=== PATIENT | male | born 1950 | race Caucasian/White ===

== ENCOUNTER 2020-05-12 08:08 | Emergency (ER) | payer MEDICARE, BC ==
[~2020-05-12] VITALS: Ht 177.8 cm; Wt 136.4 kg
[~2020-05-12 08:08] MED LIST: ACCUPRIL10 M1 PO; ALBUTEROL0.83 MG/ML IH; ATIVAN 0.50.5 MG/TAB PO; ATROVENT I0.2 MG/1 M IH; BENADRYL25 M2 PO; BISACODYL10 MG RC; CEPHALEXIN500 M1 PO; COLACE 100100 MG/CAP PO; DOXYCYCLINE 10100 MG PO; FENTANYL 50MCG TOP; GLUCOPHAGE500 MG/TAB PO; GLUCOTROL 5M5 MG/TAB PO; HCTZ 25MG TAB25 MG PO; LEXAPRO 10MG10 MG PO; LOVENOX 4040 MG/0.4 SQ; MILK OF MA400 MG/52 PO; MIRALAX PA17 GM/Dose PO; MYLANTA 150 ML150 M1 PO; NAPROSYN 2250 MG/TAB PO; NAPROSYN500 MG PO; NORCO 325 MG-51 TAB PO; NOVOLOG 100U100 U/M1 SC; NYSTATIN1 POW; PROTONIX 40MG T40 MG PO; ROCEPHIN VIA1 G/VIAL IJ; ROXICODONE 55 MG/TAB PO; SENNA8.6 MG PO; THERA TABS1 TA1 PO; TYLENOL 325MG325 MG PO; VALIUM 5MG T5 MG/TAB PO; ZANAFLEX 4MG TAB4 MG PO
[2020-05-12 08:14] VITALS: TEMP 97.8
[2020-05-12 09:41] LABS: BASO % 0.5 % (0.0-2.0); EOS # 0.2 (0.0-0.7); EOS % 2.7 % (0-4.0); GRAN # 7.1 (1.4-6.5); GRAN % 80.3 % (42.2-75.2); HEMOGLOBIN 11.7 g/dl (13.5-18.0); LYMPH # 0.7 (1.2-3.4); LYMPH % 8.4 % (20.0-51.0); MEAN CELL VOLUME 112 fl (80.0-100.0); MEAN CORPUSCULAR HEMOGLOBIN 36 pg (27.0-31.0); MEAN CORPUSCULAR HGB CONC 32 g/dl (33.0-37.0); MEAN PLATELET VOLUME 8.8 fl (7.4-10.4); MONO # 0.7 (0.1-0.6); MONO % 7.8 % (1.7-9.3); PLATELET COUNT 214 K/mm3 (130-400); RED BLOOD COUNT 3.22 M/mm3 (4.20-5.60); REDCELL DISTRIBUTION WIDTH-CV 15.2 % (11.5-14.5)
[2020-05-12 09:46] LABS: HEMATOCRIT 36.1 % (42.0-52.0)
[2020-05-12 09:51] LABS: ALANINE AMINOTRANSFERASE 10 U/L (4-49); ALBUMIN 2.2 gm/dL (3.5-5.0); ALKALINE PHOSPHATASE 133 U/L (50-136); ANION GAP 2 mmol/L (7-16); AST,SGOT 29 U/L (15-37); BILIRUBIN,TOTAL 0.6 mg/dL (0.0-1.0); BLOOD UREA NITROGEN 11 mg/dL (9-20); C-REACTIVE PROTEIN 8.9 mg/dL (0.0-0.9); CALCIUM 7.5 mg/dL (8.4-10.2); CARBON DIOXIDE 34 mmol/L (22-30); CHLORIDE 102 mmol/L (98-107); CREATININE, serum 1.23 (0.66-1.25); GLUCOSE 85 mg/dL (74-106); MAGNESIUM 1.8 mg/dL (1.6-2.3); PHOSPHOROUS 2.9 mg/dL (2.5-4.5); POTASSIUM 3.2 mmol/L (3.4-5.0); SODIUM 138 mmol/L (137-145); TOTAL PROTEIN 5.9 gm/dL (6.4-8.2)
[2020-05-12 10:02] LABS: TROPONIN-I < 0.012 ng/mL (0.000-0.035)
[2020-05-12 10:58] LABS: COLLECTION METHOD CATHETER
[2020-05-12 11:09] LABS: PH 5 (5-8); SQUAMOUS EPITHELIAL None Seen /hpf; URINE APPEARANCE Turbid; URINE BACTERIA None Seen /hpf; URINE BILIRUBIN Negative (NEGATIVE); URINE BLOOD 3+ (NEGATIVE); URINE COLOR Yellow; URINE GLUCOSE Negative (NEGATIVE); URINE KETONE Negative (NEGATIVE); URINE LEUKOCYTE ESTERASE 1+ (NEGATIVE); URINE NITRATE Positive (NEGATIVE); URINE PROTEIN(semi-quant) 2+ (NEGATIVE); URINE RBC >50 /hpf; URINE UROBILINOGEN Negative (NEGATIVE)
[2020-05-12] MEDS ORDERED: K-TAB20 PO (11:35)
[2020-05-12] MEDS ORDERED: CIPRO 500MG TA500 MG PO (11:35)
[2020-05-12] MEDS ORDERED: LASIX 20MG TABL20 MG PO (11:35)
[2020-05-12 13:00] VITALS: BP 99/69; PULSE 80
== END 2020-05-12 13:00 | disposition home or self-care (01) ==
LOC: COL.ER 08:08
PROVIDERS: Emergency Medicine
DX: E87.6 Hypokalemia (principal); R60.0 Localized edema; L89.619 Pressure ulcer of right heel, unspecified stage; I50.9 Heart failure, unspecified; N18.9 Chronic kidney disease, unspecified; E11.9 Type 2 diabetes mellitus without complications; F17.210 Nicotine dependence, cigarettes, uncomplicated; Z88.1 Allergy status to other antibiotic agents; Z79.84 Long term (current) use of oral hypoglycemic drugs
CPT/HCPCS: J7030

== ENCOUNTER 2022-06-28 12:12 | Inpatient (IN) | payer MEDICARE, BC ==
[~2022-06-28] VITALS: Ht 177.8 cm; Wt 111.7 kg
[~2022-06-28 12:12] MED LIST changes: +CIPRO 500MG TA500 MG PO; +K-TAB20 PO; +LASIX 20MG TABL20 MG PO
[2022-06-28 13:33] LABS: ALBUMIN 1.5 gm/dL (3.4-4.8); BILIRUBIN,TOTAL 0.4 mg/dL (0.2-1.2); CALCIUM 7.7 mg/dL (8.4-10.2); CREATININE, serum 1.5 mg/dL (0.72-1.25); POTASSIUM 3.9 mmol/L (3.5-4.5); TOTAL PROTEIN 6.9 gm/dL (6.2-8.1)
[2022-06-28 14:17] LABS: BASO # 0.1 K/mm3 (0.0-0.2); BASO % 0.6 % (0.0-2.0); EOS # 0.3 K/mm3 (0.0-0.7); EOS % 3.3 % (0.0-4.0); GRAN # 7.9 K/mm3 (1.4-6.5); GRAN % 76.4 % (42.2-75.2); HEMOGLOBIN 11.4 g/dl (13.5-18.0); LYMPH # 1.2 K/mm3 (1.2-3.4); LYMPH % 12.1 % (20.0-51.0); MEAN CELL VOLUME 106 fl (80.0-100.0); MEAN CORPUSCULAR HEMOGLOBIN 36 pg (27-31); MEAN CORPUSCULAR HGB CONC 34 g/dl (33.0-37.0); MEAN PLATELET VOLUME 8.8 fl (7.4-10.4); MONO # 0.8 K/mm3 (0.1-0.6); MONO % 7.4 % (1.7-9.3); PLATELET COUNT 443 K/mm3 (130-400); RED BLOOD COUNT 3.14 M/mm3 (4.20-5.60); REDCELL DISTRIBUTION WIDTH-CV 15.7 % (11.5-14.5)
[2022-06-28 14:18] LABS: HEMATOCRIT 33.2 % (42.0-52.0)
[2022-06-28 17:50] VITALS: BP 103/63; PULSE 99; TEMP 97.9
[2022-06-28 21:01] VITALS: BP 118/69; PULSE 97; TEMP 98.4
[2022-06-29 00:46] VITALS: BP 112/56; PULSE 89; TEMP 98
[2022-06-29 03:48] VITALS: BP 117/63; PULSE 94; TEMP 98.6
[2022-06-29 07:12] VITALS: BP 109/55; PULSE 88; TEMP 97.8
--- NOTE | 2022-06-29 08:33 | NUR ---
Patient sitting up in bed, A&Ox4. VSS 4L NC O2, no reported SOB. Denies pain and discomfort. Nurse made the patient NPO pending procedure. No further needs expressed. Call light within reach. Bed alarm on
[2022-06-29 09:06] LABS: ALBUMIN 1.2 gm/dL (3.4-4.8); BILIRUBIN,TOTAL 0.4 mg/dL (0.2-1.2); CALCIUM 7.2 mg/dL (8.4-10.2); CREATININE, serum 1.39 mg/dL (0.72-1.25); TOTAL PROTEIN 5.8 gm/dL (6.2-8.1)
[2022-06-29 09:58] LABS: BASO # 0.1 K/mm3 (0.0-0.2); BASO % 0.6 % (0.0-2.0); EOS # 0.3 K/mm3 (0.0-0.7); EOS % 3.3 % (0.0-4.0); GRAN # 7.6 K/mm3 (1.4-6.5); GRAN % 78.4 % (42.2-75.2); HEMATOCRIT 38.7 % (42.0-52.0); HEMOGLOBIN 12.7 g/dl (13.5-18.0); LYMPH # 1.2 K/mm3 (1.2-3.4); MEAN CELL VOLUME 109 fl (80.0-100.0); MEAN CORPUSCULAR HEMOGLOBIN 36 pg (27-31); MEAN CORPUSCULAR HGB CONC 33 g/dl (33.0-37.0); MEAN PLATELET VOLUME 9.3 fl (7.4-10.4); MONO # 0.5 K/mm3 (0.1-0.6); MONO % 5.4 % (1.7-9.3); PLATELET COUNT 314 K/mm3 (130-400); RED BLOOD COUNT 3.54 M/mm3 (4.20-5.60); REDCELL DISTRIBUTION WIDTH-CV 15.9 % (11.5-14.5)
[2022-06-29 11:40] VITALS: BP 106/62; PULSE 94; TEMP 98.8
--- NOTE | 2022-06-29 12:20 | NUR ---
SW met with patient to complete intake. Patient states that he lives alone in [facility] Next of kin and point of contact is his daughter Kathy Hopkins [phone]. Patient states that he utilizes a walker, is independent with ADL's, and does not utilize home health services at this time. PCP is Dr. Vargas, and pharmacy is [facility]. DPOA/HC is rodrigo Chavez. Patient states that he plans to return to his home upon DC. SW will continue to follow. DC plan: home
--- NOTE | 2022-06-29 13:07 | NUR ---
Rail Track Layer rounds: Patient declined Rail Track Layer visit; however, requested assistance with getting his lunch. He was not sure if he could have lunch or not. Rail Track Layer spoke with nurse at nurses' station. Patient can have lunch. Patient thought he signed up for "auto service" for his meals, but he had not. Rail Track Layer encouraged him and his visitor (?) to call for his meals because then he could tell the kitchen staff what he wanted to eat as opposed to having something delivered blindly. Patient stated that was a good idea. Patient's visitor was ordering Patient's lunch when Rail Track Layer left the room.
[2022-06-29 15:44] VITALS: BP 101/55; PULSE 91; TEMP 97.8
--- NOTE | 2022-06-29 17:58 | NUR ---
Patient had an uneventful day, had 2 incontinent episodes. A&Ox4. VSS 3L NC O2, no reported SOB. IV CDI, fluids infusing. Denies pain and discomfort. External catheter intact. No further needs expressed. Call light within reach
[2022-06-29 19:49] VITALS: BP 97/52; PULSE 89; TEMP 98.7
[2022-06-30] VITALS (7 sets, daily range): BP systolic 100–123; BP diastolic 50–60; PULSE 68–98; TEMP 98.1–99.1
--- NOTE | 2022-06-30 08:00 | NUR ---
Pt awake and laying in bed. Morning medications administered per eMAR. Shift assessment completed. VSS. Crackles on bases heard during lung auscultation; O2 sat at 93% on 1L per NC. Telemetry on. IV in R forearm intact; no edema or redness. No further requests at this time. Fall precautions remain in place. Call light within reach.
--- NOTE | 2022-06-30 12:34 | NUR ---
Initial visit; Patient thanked Heel Stiffener for stopping by and offering God's blessings. His daughter Kathy was also present and said "Hi" to Heel Stiffener.
--- NOTE | 2022-06-30 14:22 | NUR ---
Heart Coordinator followed up with patient and patient's daughter, Kathy to discuss discharge planning. SW reviewed PT recommendation for post acute rehab vs home health. Patient's preference is home with and Kathy is supportive of this. Patient has used [facility] in the past and would like to use them again. SW faxed referral to [facility] . Discharge Plan: Home with
[2022-06-30 15:00] LABS: BASO # 0.1 K/mm3 (0.0-0.2); BASO % 0.9 % (0.0-2.0); EOS # 0.5 K/mm3 (0.0-0.7); EOS % 4.2 % (0.0-4.0); GRAN # 8.5 K/mm3 (1.4-6.5); LYMPH # 1.2 K/mm3 (1.2-3.4); LYMPH % 10.5 % (20.0-51.0); MEAN CELL VOLUME 109 fl (80.0-100.0); MEAN CORPUSCULAR HGB CONC 33 g/dl (33.0-37.0); MEAN PLATELET VOLUME 8.5 fl (7.4-10.4); MONO # 0.8 K/mm3 (0.1-0.6); MONO % 6.8 % (1.7-9.3); PLATELET COUNT 330 K/mm3 (130-400); RED BLOOD COUNT 2.64 M/mm3 (4.20-5.60); REDCELL DISTRIBUTION WIDTH-CV 15.8 % (11.5-14.5)
[2022-06-30 15:05] LABS: HEMATOCRIT 28.8 % (42.0-52.0); HEMOGLOBIN 9.4 g/dl (13.5-18.0); MEAN CORPUSCULAR HEMOGLOBIN 36 pg (27-31)
[2022-06-30 15:16] LABS: CALCIUM 6.6 mg/dL (8.4-10.2); CREATININE, serum 1.27 mg/dL (0.72-1.25); MAGNESIUM 1.7 mg/dL (1.6-2.6); PHOSPHOROUS 2.9 mg/dL (2.3-4.7); POTASSIUM 3.4 mmol/L (3.5-4.5)
--- NOTE | 2022-06-30 20:43 | NUR ---
PATIENT IS LAYING IN BED WITH LIGHTS OFF AND CALL LIGHT IN HAND. PATIENT DENIES ANY PAIN, NEEDS OR CONCERNS AT THIS TIME. PATIENT ENCOURAGED TO CALL WITH NEEDS OR CONCERNS. RESPIRATORY JUST LEFT ROOM STATING PATIENT WAS SATING 82% AND WAS REFUSING TO HAVE HIS OXYGEN ON. DAY SHIFT RNFEI WENT BACK TO PATIENT ROOM DURING REPORT TO ASSESS.
[2022-07-01 04:37] VITALS: BP 112/51; PULSE 93; TEMP 98.3
[2022-07-01 06:17] LABS: BASO # 0.1 K/mm3 (0.0-0.2); BASO % 0.8 % (0.0-2.0); EOS # 0.5 K/mm3 (0.0-0.7); EOS % 5.3 % (0.0-4.0); GRAN # 6.5 K/mm3 (1.4-6.5); GRAN % 71.5 % (42.2-75.2); HEMOGLOBIN 10.2 g/dl (13.5-18.0); LYMPH # 1.4 K/mm3 (1.2-3.4); LYMPH % 15.2 % (20.0-51.0); MEAN CELL VOLUME 112 fl (80.0-100.0); MEAN CORPUSCULAR HEMOGLOBIN 36 pg (27-31); MEAN CORPUSCULAR HGB CONC 32 g/dl (33.0-37.0); MEAN PLATELET VOLUME 8.8 fl (7.4-10.4); MONO # 0.6 K/mm3 (0.1-0.6); MONO % 6.9 % (1.7-9.3); PLATELET COUNT 356 K/mm3 (130-400); RED BLOOD COUNT 2.87 M/mm3 (4.20-5.60); REDCELL DISTRIBUTION WIDTH-CV 15.4 % (11.5-14.5)
[2022-07-01 06:33] LABS: CALCIUM 7.1 mg/dL (8.4-10.2); CREATININE, serum 1.25 mg/dL (0.72-1.25); MAGNESIUM 1.8 mg/dL (1.6-2.6); POTASSIUM 3.2 mmol/L (3.5-4.5)
[2022-07-01 06:34] LABS: HEMATOCRIT 32.2 % (42.0-52.0)
[2022-07-01 07:30] VITALS: BP 98/58; PULSE 96; TEMP 97.4
--- NOTE | 2022-07-01 08:00 | NUR ---
Pt awake and laying in bed. Morning medications administered; insulin held as pts blood sugar was 64. Physician notified and hypoglycemic reaction protocol in place; dextrose tablet administered. Blood sugar rechecked after 15 minutes and was 57; dextrose tablet administered. Blood sugar rechecked after 15 minutes and was 59; dextrose tablet administered. Blood sugar rechecked after 15 minutes and now stable at 73. Shift assessment completed. Crackles on bases KIMBERLY heard upon auscultation of lungs; O2 sat at 93% on 1L per NC. Telemetry on. Zosyn infusing at 25mL/hr in R FA intact; no edema or redness. Lidocaine patch placed between shoulder blades. Fall precautions remain in place. Call light within reach.
--- NOTE | 2022-07-01 08:14 | NUR ---
Patient's blood glucose noted to be 64 this AM. Upon assessment of patient, no s/s of hypoglycemia noted. VSS. Patient A&O. Hypoglycemia protocol being followed. Call light in reach. Fall precautions in place.
--- NOTE | 2022-07-01 08:22 | NUR ---
Blood glucose 57 upon recheck, second glucose tab administered by ELIS Bahena per protocol.
--- NOTE | 2022-07-01 08:43 | NUR ---
Blood glucose 59 upon recheck. Glucose tablet given per protocol. Patient remains asymptomatic.
--- NOTE | 2022-07-01 09:01 | NUR ---
Blood glucose 73 upon recheck.
[2022-07-01 10:47] VITALS: BP 104/59; PULSE 89; TEMP 97.9
--- NOTE | 2022-07-01 11:15 | NUR ---
Ranch Hand made contact with Tonya at [facility] to confirm they received referral. Tonya requested to be notified when discharge date is set.
[2022-07-01 15:10] VITALS: BP 97/53; PULSE 89; TEMP 97.9
--- NOTE | 2022-07-01 16:34 | NUR ---
Pt blood sugar is 65. ANGELIKA Barnes administered dextrose tablet per hypoglycemic reaction protocol.
--- NOTE | 2022-07-01 18:31 | NUR ---
Blood glucose 70 upon reassessment. Diet advanced to low fiber diet per orders as cystoscopy is complete. Pt had another incontinent episode of large loose stool; Imodium PRN administered. Fall precautions remain in place. Call light within reach.
[2022-07-01 21:02] VITALS: BP 107/56; PULSE 93; TEMP 97.9
[2022-07-02 00:57] VITALS: BP 108/52; PULSE 87; TEMP 98.7
[2022-07-02 05:08] VITALS: BP 103/55; PULSE 87; TEMP 97.7
[2022-07-02 06:51] LABS: BASO # 0.1 K/mm3 (0.0-0.2); BASO % 0.8 % (0.0-2.0); EOS # 0.7 K/mm3 (0.0-0.7); EOS % 6.2 % (0.0-4.0); GRAN # 7.6 K/mm3 (1.4-6.5); GRAN % 71.8 % (42.2-75.2); LYMPH # 1.4 K/mm3 (1.2-3.4); LYMPH % 13.4 % (20.0-51.0); MEAN CORPUSCULAR HGB CONC 33 g/dl (33.0-37.0); MEAN PLATELET VOLUME 8.8 fl (7.4-10.4); MONO # 0.8 K/mm3 (0.1-0.6); MONO % 7.3 % (1.7-9.3); PLATELET COUNT 324 K/mm3 (130-400); RED BLOOD COUNT 2.76 M/mm3 (4.20-5.60); REDCELL DISTRIBUTION WIDTH-CV 15.5 % (11.5-14.5)
[2022-07-02 07:07] LABS: HEMATOCRIT 29.6 % (42.0-52.0); HEMOGLOBIN 9.8 g/dl (13.5-18.0); MEAN CELL VOLUME 107 fl (80.0-100.0); MEAN CORPUSCULAR HEMOGLOBIN 36 pg (27-31)
[2022-07-02 07:10] LABS: ALBUMIN 0.9 gm/dL (3.4-4.8); CALCIUM 6.9 mg/dL (8.4-10.2); CREATININE, serum 1.22 mg/dL (0.72-1.25); MAGNESIUM 1.7 mg/dL (1.6-2.6); PHOSPHOROUS 2.5 mg/dL (2.3-4.7); POTASSIUM 3.5 mmol/L (3.5-4.5)
[2022-07-02 07:13] VITALS: BP 108/49; PULSE 88; TEMP 97.6
--- NOTE | 2022-07-02 08:46 | NUR ---
PATIENT MORNING BLOOD GLUCOSE IS 73. INFORMATION RECEIVED FROM MORNING LAB DRAWS. PATIENT REFUSES FINGERSTICK BLOOD SUGAR CHECKS. PATIENT WILL NOT BE ADMINISTERED INSULIN BASED OFF OF LAB VALUE RESULT. PATIENT IS IN STABLE CONDITION .
--- NOTE | 2022-07-02 09:30 | NUR ---
Radiology notified of need for chest x ray for discharge per order.
[2022-07-02 11:38] VITALS: BP 113/60; PULSE 89; TEMP 98
--- NOTE | 2022-07-02 12:48 | NUR ---
Mechanical Maintenance Worker met with patient and patient's daughter, Kathy to review discharge plan. Patient to discharge home today with [facility]. Kathy advised she is working on establishing Medicaid and [employer] transportation servicse for patient. ILDA presented IM form to patient who verbalized understanding adn provided signature. ILDA placed form in chart and provided copy to patient. ILDA contacted [facility] and faxed discharge orders. Discharge Plan: Home with [facility]
--- NOTE | 2022-07-02 13:50 | NUR ---
PATIENT DISCHARGED VIA WHEELCHAIR WITH OPERATIONS VICE PRESIDENT AT 1350. RECEIVED DISCHARGE INSTRUCTIONS, FOLLOW UP APPOINTMENTSM, AND HOME CARE CONSULTS. ACKNOWLEDGED UNDERSTANDING. NO ISSUES. STABLE.
== END 2022-07-02 13:30 | disposition home health service (06) | DRG 871 ==
LOC: COL.ER 12:12 → MEDICAL 15:49
PROVIDERS: Family Medicine; Internal Medicine; Physician Assistant; Urology; ADMIT Internal Medicine
PROC: 0TJB8ZZ Inspection of Bladder, Via Natural or Artificial Opening Endoscopic (ICD-10-PCS; principal; 2022-07-01 15:30)
DX: A41.9 Sepsis, unspecified organism (principal); J96.01 Acute respiratory failure with hypoxia; A09 Infectious gastroenteritis and colitis, unspecified; K80.10 Calculus of gallbladder with chronic cholecystitis without obstruction; N17.9 Acute kidney failure, unspecified; G47.33 Obstructive sleep apnea (adult) (pediatric); Z66 Do not resuscitate; F32.A Depression, unspecified; F17.210 Nicotine dependence, cigarettes, uncomplicated; F10.90 Alcohol use, unspecified, uncomplicated; I95.9 Hypotension, unspecified; E66.9 Obesity, unspecified; K42.9 Umbilical hernia without obstruction or gangrene; I12.9 Hypertensive chronic kidney disease with stage 1 through stage 4 chronic kidney disease, or unspecified chronic kidney disease; E11.22 Type 2 diabetes mellitus with diabetic chronic kidney disease; N18.30 Chronic kidney disease, stage 3 unspecified; G89.29 Other chronic pain; N32.0 Bladder-neck obstruction; R54 Age-related physical debility; M54.9 Dorsalgia, unspecified; E87.6 Hypokalemia; E11.649 Type 2 diabetes mellitus with hypoglycemia without coma; Z88.1 Allergy status to other antibiotic agents; Z68.35 Body mass index [BMI] 35.0-35.9, adult
CPT/HCPCS: J0696; J1650; J2543; J7030; Q9967

== ENCOUNTER 2022-07-03 14:37 | Observation (INO) | payer MEDICARE, BC ==
[~2022-07-03] VITALS: Ht 170 cm; Wt 111.3 kg
[2022-07-03 15:11] LABS: BASO # 0.1 K/mm3 (0.0-0.2); BASO % 0.7 % (0.0-2.0); EOS # 0.5 K/mm3 (0.0-0.7); EOS % 3.7 % (0.0-4.0); GRAN # 10.9 K/mm3 (1.4-6.5); GRAN % 76.7 % (42.2-75.2); HEMATOCRIT 35.3 % (42.0-52.0); HEMOGLOBIN 11.4 g/dl (13.5-18.0); LYMPH # 1.5 K/mm3 (1.2-3.4); LYMPH % 10.6 % (20.0-51.0); MEAN CELL VOLUME 109 fl (80.0-100.0); MEAN CORPUSCULAR HEMOGLOBIN 35 pg (27-31); MEAN CORPUSCULAR HGB CONC 32 g/dl (33.0-37.0); MEAN PLATELET VOLUME 8.6 fl (7.4-10.4); MONO # 1.1 K/mm3 (0.1-0.6); MONO % 7.8 % (1.7-9.3); PLATELET COUNT 318 K/mm3 (130-400); RED BLOOD COUNT 3.25 M/mm3 (4.20-5.60)
[2022-07-03 15:37] LABS: ALBUMIN 1.1 gm/dL (3.4-4.8); BILIRUBIN,TOTAL 0.6 mg/dL (0.2-1.2); C-REACTIVE PROTEIN 7.03 mg/dL (0.00-0.50); CALCIUM 7.4 mg/dL (8.4-10.2); CREATININE, serum 1.37 mg/dL (0.72-1.25); TOTAL PROTEIN 5.9 gm/dL (6.2-8.1)
--- NOTE | 2022-07-03 16:35 | NUR ---
Patient recently discharged from this facility yesterday. SW consulted for placement. Patient currently medically stable for discharge but is unable to manage at home. SW contacted [facility] [place]. They were able to make it out to the home today and called EMS after finding the patient "tacky, pale, BP 80/50 and heart rate between 130's-150's". Phone call made to the patients daughter Kathy to inform her that the patient was here. She is currently on her way and will arrive around 1715. Per Kathy she is in the process of getting the patient all the needed DME supplies for home including a lift chair but it cannot be delivered until next week. She states that they had to call EMS when the patient got home yesterday to get him into the home because he was "to weak". Kathy is in agreement of the patient being placed for either SNF or LTC.
[2022-07-03 19:22] LABS: COLLECTION METHOD CLEAN CATCH
[2022-07-03 19:25] LABS: URINE APPEARANCE Clear (CLEAR/HAZY); URINE COLOR Yellow (YELLOW)
[2022-07-03 19:26] LABS: URINE GLUCOSE Negative (NEGATIVE); URINE KETONE Negative (NEGATIVE); URINE NITRATE Negative (NEGATIVE); URINE PROTEIN(semi-quant) 1+ (NEGATIVE); URINE UROBILINOGEN 0.2 E.U/dL (0.2-1.0)
[2022-07-03 19:27] LABS: URINE BLOOD 3+ (NEGATIVE)
[2022-07-03 19:32] LABS: MUCOUS Present (NOT PRESENT); SQUAMOUS EPITHELIAL None Seen /hpf (0-10); URINE BACTERIA Rare /hpf (NONE SEEN); URINE CALCIUM OXALATE CRYSTAL Present (NOT PRESENT); URINE RBC >50 /hpf (0-2)
[2022-07-03 19:50] VITALS: BP 107/57; PULSE 84; TEMP 98.3
[2022-07-03 23:33] VITALS: BP 123/70; PULSE 88; TEMP 98
--- NOTE | 2022-07-04 01:32 | NUR ---
PATIENT NOTED TO HAVE TWO LOOSE INCONTINENT BOWEL MOVEMENTS LARGE IN SIZE. OBTAINED ORDER FOR GI PANEL AND RESULTS OF THIS WERE NEGATIVE. PATIENT REPORTS HE HAS ISSUES ON AND OFF WITH LOOSE BOWEL MOVEMENTS. PATIENT NOTED TO HAVE EXORIATED BLEEDING AREAS TO AURELIA AREA. AURELIA CARE PROVIDED AND BARRIER CREAM APPLIED.
[2022-07-04 04:13] VITALS: BP 115/64; PULSE 84; TEMP 98
--- NOTE | 2022-07-04 06:22 | NUR ---
PATIENT RESTED QUIETLY THIS SHIFT. PATIENT HAD 3 LARGE INCONTINENT BOWEL MOVEMENTS. PATIENT RECEIVED NO PRN MEDICATIONS.
[2022-07-04 07:33] VITALS: BP 116/65; PULSE 82; TEMP 97.7
[2022-07-04 09:09] LABS: BASO # 0.1 K/mm3 (0.0-0.2); BASO % 0.7 % (0.0-2.0); EOS # 0.7 K/mm3 (0.0-0.7); EOS % 5.2 % (0.0-4.0); GRAN # 10.3 K/mm3 (1.4-6.5); GRAN % 76.3 % (42.2-75.2); HEMOGLOBIN 11.3 g/dl (13.5-18.0); LYMPH # 1.5 K/mm3 (1.2-3.4); LYMPH % 10.8 % (20.0-51.0); MEAN CELL VOLUME 108 fl (80.0-100.0); MEAN CORPUSCULAR HEMOGLOBIN 35 pg (27-31); MEAN CORPUSCULAR HGB CONC 33 g/dl (33.0-37.0); MEAN PLATELET VOLUME 8.7 fl (7.4-10.4); MONO # 0.9 K/mm3 (0.1-0.6); MONO % 6.6 % (1.7-9.3); PLATELET COUNT 298 K/mm3 (130-400); RED BLOOD COUNT 3.19 M/mm3 (4.20-5.60); REDCELL DISTRIBUTION WIDTH-CV 14.9 % (11.5-14.5)
[2022-07-04 09:10] LABS: HEMATOCRIT 34.3 % (42.0-52.0)
--- NOTE | 2022-07-04 09:20 | NUR ---
Follow-up visit; Patient out of sorts but thanked Nursing Techn for offering God's blessings. His thanked Nursing Techn for stopping by and wishing them well.
[2022-07-04 09:24] LABS: CALCIUM 7.5 mg/dL (8.4-10.2); CREATININE, serum 1.3 mg/dL (0.72-1.25); POTASSIUM 4.1 mmol/L (3.5-4.5)
--- NOTE | 2022-07-04 10:17 | NUR ---
PATIENT ALERT AND AWAKE, RESTING IN BED. NGUYEN CATHETER PATENT AND DRAINING YELLOW URINE. PATIENTS DAUGHTER AT BEDSIDE, TELLING HIM THE PROS OF HIM GOING TO A SNF. BED ALARM ON , [facility]
[2022-07-04 11:20] VITALS: BP 124/59; PULSE 94; TEMP 97.8
[2022-07-04] MEDS ORDERED: TYLENOL 500MG500 MG PO (11:58)
[2022-07-04] MEDS ORDERED: AMOXICILLIN 8751 TAB PO (11:59)
--- NOTE | 2022-07-04 15:30 | NUR ---
Nuisance Wildlife Trapper met with patient and patient's daughter to review discharge plan. ILDA advised that referrals were sent to [facility] and [facility]. SW faxed updates to both facilities. Aj at [facility] declined referral. Miley at [facility] advised they can accept and spoke with patient's daughter, Kathy. ILDA faxed discharge orders and Saumya will pickers material handlers patient this afternoon. ILDA met with patient who is agreeable to this plan. [facility]
--- NOTE | 2022-07-04 15:41 | NUR ---
IV DISCONTINUED, PATIENT BELONGINGS GIVEN TO [employer] EMPLOYEE. PATIENT LEFT IN STABLE CONDITION.
--- NOTE | 2022-07-04 15:52 | NUR ---
[facility] CALLED BY ILDA EARLIER, THE GAVE NO TIME FOR PICKUP BECAUSE THEY STATED THEY WERE ALREADY ON THE WAY FOR CORN CROP SUPERVISOR. THIS RN WAS BUSY WITH ICU TRANSFER AND STARTING AN IV, WHEN DONE TRANSPORTATION WAS ALREADY HERE. REPORT CALLED TO CALVIN AT [facility], CALL BACK NUMBER GIVEN FOR ANY FURTHER NEEDS.
== END 2022-07-04 15:55 ==
LOC: COL.ER 14:37 → MEDICAL 17:47
PROVIDERS: Family Medicine; Physician Assistant; ADMIT Internal Medicine
DX: R53.1 Weakness (principal); N39.0 Urinary tract infection, site not specified; K42.9 Umbilical hernia without obstruction or gangrene; M54.9 Dorsalgia, unspecified; E11.22 Type 2 diabetes mellitus with diabetic chronic kidney disease; I12.9 Hypertensive chronic kidney disease with stage 1 through stage 4 chronic kidney disease, or unspecified chronic kidney disease; N18.30 Chronic kidney disease, stage 3 unspecified; N17.9 Acute kidney failure, unspecified; E66.9 Obesity, unspecified; G47.33 Obstructive sleep apnea (adult) (pediatric); R53.81 Other malaise; F17.210 Nicotine dependence, cigarettes, uncomplicated; Z66 Do not resuscitate; Z68.38 Body mass index [BMI] 38.0-38.9, adult
CPT/HCPCS: G0378

== ENCOUNTER → 2022-07-28 | Outpatient (REF) | payer MEDICARE, BC ==
[~2022-07-28] MED LIST changes: +AMOXICILLIN 8751 TAB PO; +BACTRIM 400 MG-1 TAB PO; +PERCOCET 325 MG1 TA2 PO; +TYLENOL 500MG500 MG PO
[2022-07-28 07:15] LABS: BASO # 0.1 K/mm3 (0.0-0.2); BASO % 0.6 % (0.0-2.0); EOS # 0.7 K/mm3 (0.0-0.7); EOS % 5.8 % (0.0-4.0); GRAN # 8.1 K/mm3 (1.4-6.5); GRAN % 67.8 % (42.2-75.2); HEMOGLOBIN 11.5 g/dl (13.5-18.0); LYMPH # 1.8 K/mm3 (1.2-3.4); LYMPH % 14.9 % (20.0-51.0); MEAN CELL VOLUME 98 fl (80.0-100.0); MEAN CORPUSCULAR HEMOGLOBIN 32 pg (27-31); MEAN CORPUSCULAR HGB CONC 33 g/dl (33.0-37.0); MEAN PLATELET VOLUME 8.8 fl (7.4-10.4); MONO # 1.2 K/mm3 (0.1-0.6); MONO % 10.4 % (1.7-9.3); PLATELET COUNT 353 K/mm3 (130-400); RED BLOOD COUNT 3.57 M/mm3 (4.20-5.60); REDCELL DISTRIBUTION WIDTH-CV 13.9 % (11.5-14.5)
[2022-07-28 08:06] LABS: ALKALINE PHOSPHATASE 100 U/L (40-150); ANION GAP 5 mmol/L (7-16); AST,SGOT 10 U/L (5-34); BILIRUBIN,TOTAL 0.2 mg/dL (0.2-1.2); BLOOD UREA NITROGEN 16 mg/dL (8-26); CALCIUM 7.2 mg/dL (8.4-10.2); CARBON DIOXIDE 28 mmol/L (23-31); CHLORIDE 101 mmol/L (98-107); CREATININE, serum 1.36 mg/dL (0.72-1.25); GLUCOSE 73 mg/dL (70-99); POTASSIUM 4.6 mmol/L (3.5-4.5); SODIUM 134 mmol/L (136-145)
[2022-07-28 08:26] LABS: THYROID STIMULATING HORMONE 3.702 uIU/mL (0.350-4.940)
[2022-07-28 08:33] LABS: ALANINE AMINOTRANSFERASE < 6 U/L (0-55)
== END ==
LOC: ZCOL.LAB 07:00
PROVIDERS: Physician Assistant Medical
DX: N17.9 Acute kidney failure, unspecified (principal); N18.30 Chronic kidney disease, stage 3 unspecified; E11.22 Type 2 diabetes mellitus with diabetic chronic kidney disease